=== PATIENT | male | born 1960 | race Caucasian/White ===

== ENCOUNTER 2022-09-01 10:25 | Outpatient (CLI) | payer OTHER, SELFPAY | END 2022-09-01 10:26 | disposition home or self-care (01) | PROVIDERS: Visit Provider Family Medicine | DX: Z00.00 Encounter for general adult medical examination without abnormal findings (principal); I10 Essential (primary) hypertension; R53.83 Other fatigue; E66.9 Obesity, unspecified; K21.9 Gastro-esophageal reflux disease without esophagitis; Z12.5 Encounter for screening for malignant neoplasm of prostate; Z13.6 Encounter for screening for cardiovascular disorders | CPT/HCPCS: 80053; 80061; 84153; 84270; 84402; 84403; 84443 ==

== ENCOUNTER 2022-10-11 08:28 | Outpatient (CLI) | payer OTHER, SELFPAY | END 2022-10-11 08:29 | disposition home or self-care (01) | LOC: LKVREF 08:33 | PROVIDERS: Visit Provider Family Medicine | DX: E11.9 Type 2 diabetes mellitus without complications (principal); E78.5 Hyperlipidemia, unspecified; I10 Essential (primary) hypertension; R53.83 Other fatigue; E66.9 Obesity, unspecified; N40.0 Benign prostatic hyperplasia without lower urinary tract symptoms; R79.89 Other specified abnormal findings of blood chemistry | CPT/HCPCS: 82043; 82570; 84270; 84402; 84403 ==

== ENCOUNTER 2023-01-05 08:15 | Outpatient (CLI) | payer OTHER, SELFPAY | END 2023-01-05 08:16 | disposition home or self-care (01) | LOC: NFLDREF 01-06 07:40 | PROVIDERS: PCP Family Medicine; Visit Provider Family Medicine | DX: E11.9 Type 2 diabetes mellitus without complications (principal); I10 Essential (primary) hypertension; N40.0 Benign prostatic hyperplasia without lower urinary tract symptoms; R79.89 Other specified abnormal findings of blood chemistry | CPT/HCPCS: 80053; 84153; 84270; 84402; 84403 ==

== ENCOUNTER 2023-10-27 10:19 | Outpatient (CLI) | payer BC, SELFPAY | END 2023-10-27 10:20 | disposition home or self-care (01) | LOC: LKVREF 10:20 | PROVIDERS: PCP Family Medicine; Visit Provider Family Medicine | DX: E78.00 Pure hypercholesterolemia, unspecified (principal); I10 Essential (primary) hypertension; E66.9 Obesity, unspecified | CPT/HCPCS: 80053; 80061 ==

== ENCOUNTER 2023-12-19 19:24 | Outpatient (CLI) | payer BC, SELFPAY ==
--- NOTE | 2024-01-02 11:34 | W.PM.SLEEP ---
Sleep Study Details Details Date of Sleep Study: 12/19/23 Sleep Study Details: STUDY TYPE:? Home unattended ? BMI:? Not recorded ORDERING PROVIDER:? Reed INDICATION:? Concern about sleep apnea ? SLEEP SUMMARY:? 332.1 minutes monitored RESPIRATORY SUMMARY:? AHI 77.5 Low oxygen 71 35.9% of study oxygen less than 90% Snoring 87.8% PERIODIC LIMB MOVEMENTS OF SLEEP:? Not recorded CARDIAC:? Range 48-97, mean 61.4 beats per minute IMPRESSION:? Severe obstructive sleep apnea with significant hypo oxygenation RECOMMENDATION: AutoSet CPAP versus in-lab titration. Once effective therapy is established overnight oximetry should be performed to ensure patient does not need nocturnal oxygen.
== END 2023-12-19 19:25 | disposition home or self-care (01) ==
LOC: SLEEP 19:28
PROVIDERS: PCP Family Medicine; Visit Provider Family Medicine
DX: G47.33 Obstructive sleep apnea (adult) (pediatric) (principal)
CPT/HCPCS: 95806